=== PATIENT | male | born 1965 | race Caucasian/White ===

== ENCOUNTER 2017-11-03 12:38 | Inpatient (IN) | payer BC ==
[2017-11-03 12:45] VITALS: BMI 24.7
--- NOTE | 2017-11-03 13:16 | HP ---
CIWA Score - CIWA Score Nausea/Vomitin Muscle Tremors: 3 Anxiety: 3 Agitation: 3 Paroxysmal Sweats: 2 Orientation: 0-Oriented Tacttile Disturbances: 2-Mild Itch/Numbness/Burn Auditory Disturbances: 2-Mild Harshness/Frighten Visual Disturbances: 0-None Headache: 2-Mild CIWA-Ar Total Score: 20 Admission ROS BHS - HPI Chief Complaint: i need help to stop drinking alcohol Allergies/Adverse Reactions: Allergies Allergy/AdvReac Type Severity Reaction Status Date / Time Penicillins Allergy Verified 11/03/17 13:42 History of Present Illness: this 52 years old male with alcohol dependence,seeking detox,withdrawal symptom, never been n detox before last syncope on 11/01/17 denied medical problem nicotine dependence - Ebola screening Have you traveled outside of the country in the last 21 days: No (N) Have you had contact with anyone from an Ebola affected area: No Have you been sick,other than usual withdrawal symptoms: No Do you have a fever: No - Review of Systems Constitutional: Loss of Appetite, Malaise, Night Sweats, Changes in sleep, Weakness EENT: reports: Nose Congestion Respiratory: reports: No Symptoms reported Cardiac: reports: No Symptoms Reported GI: reports: Nausea, Vomiting, Abdominal cramping : reports: No Symptoms Reported Musculoskeletal: reports: Back Pain, Muscle Pain Integumentary: reports: Dryness Neuro: reports: Headache, Tremors Endocrine: reports: No Symptoms Reported Hematology: reports: No Symptoms Reported Psychiatric: reports: No Sypmtoms Reported, Judgement Intact, Mood/Affect Appropiate, Orientated x3 Patient History - Patient Medical History Hx Anemia: No Hx Asthma: No Hx Chronic Obstructive Pulmonary Disease (COPD): No Hx Cancer: No Hx Cardiac Disorders: No Hx Congestive Heart Failure: No Hx Hypertension: No Hx Hypercholesterolemia: No Hx Pacemaker: No HX Cerebrovascular Accident: No Hx Seizures: No Hx Dementia: No Hx Diabetes: No Hx Gastrointestinal Disorders: No Hx Liver Disease: No Hx Genitourinary Disorders: No Hx Sexually Transmitted Disorders: No Hx Renal Disease (ESRD): No Hx Thyroid Disease: No Hx Human Immunodeficiency Virus (HIV): No (never been tested) Hx Hepatitis C: No Hx Depression: No Hx Suicide Attempt: No Hx Bipolar Disorder: No Hx Schizophrenia: No Other Medical History: no suicidal,no homicidal - Patient Surgical History Past Surgical History: Yes Hx Neurologic Surgery: No Hx Cataract Extraction: No Hx Cardiac Surgery: No Hx Lung Surgery: No Hx Breast Surgery: No Hx Breast Biopsy: No Hx Abdominal Surgery: No Hx Appendectomy: Yes (AT AGE 8) Hx Cholecystectomy: No Hx Genitourinary Surgery: No Hx Section: No Hx Orthopedic Surgery: No Anesthesia Reaction: No - PPD History Previous Implant?: No Documented Results: Negative w/o proof Implanted On Prior R Admission?: No PPD to be Administered?: Yes - Smoking Cessation Smoking history: Current every day smoker Have you smoked in the past 12 months: Yes Aproximately how many cigarettes per day: 20 Hx Chewing Tobacco Use: No Initiated information on smoking cessation: Yes 'Breaking Loose' booklet given: 11/03/17 - Substance & Tx. History Hx Alcohol Use: Yes Hx Substance Use: No Substance Use Type: Alcohol Hx Substance Use Treatment: No - Substances Abused Alcohol Route: Oral Frequency: Daily Amount used: 2 PINTS OF VODKA Age of first use: 14 Date of Last Use: 11/03/17 Family Disease History - Family Disease History Family Disease History: Other: Father, Mother Admission Physical Exam BHS - Vital Signs Vital Signs: Vital Signs - 24 hr 11/03/17 12:41 Temperature 98 F Pulse Rate 90 Respiratory 19 Rate Blood Pressure 153/105 - Physical General Appearance: Yes: Moderate Distress, Irritable, Sweating, Anxious HEENTM: Yes: Normal ENT Inspection, ELIO, Pharynx Normal Respiratory: Yes: Lungs Clear, Normal Breath Sounds, No Respiratory Distress Neck: Yes: Within Normal Limits, Supple, Trachea in good position Breast: Yes: Within Normal Limits Cardiology: Yes: Within Normal Limits, Regular Rhythm, Regular Rate, S1, S2 Abdominal: Yes: Normal Bowel Sounds, Non Tender, Flat, Soft Genitourinary: Yes: Within Normal Limits Back: Yes: Muscle Spasm Musculoskeletal: Yes: full range of Motion, Back pain, Muscle Pain Extremities: Yes: Tremors Neurological: Yes: investigative agent II-XII NML intact, Fully Oriented, Alert, Motor Strength 5/5 Integumentary: Yes: Dry Lymphatic: Yes: Within Normal Limits - Diagnostic (1) Alcohol dependence with uncomplicated withdrawal Current Visit: Yes Status: Acute (2) Syncope Current Visit: Yes Status: Acute (3) Nicotine dependence Current Visit: Yes Status: Acute Cleared for Admission BHS - Detox or Rehab BHS Level of Care: Medically Managed Detox Regimen/Protocol: Librium [facility] Breath Alcohol Content Breath Alcohol Content: 0.025 Urine Drug Screen - Results Drug Screen Negative: Yes
[2017-11-03] MEDS ORDERED: MAG HYDROX/AL HYDROX/SIMETH 30 ML UNIT-DOSE CUP PO PRN (13:27)
[2017-11-03] MEDS ORDERED: P-EPHED 60MG/TRIPROLIDI 2.5MG TABLET PO PRN (13:27)
[2017-11-03] MEDS ORDERED: chlordiazePOXIDE HCL 25 MG CAPSULE PO PRN (13:27)
[2017-11-03] MEDS ORDERED: LOPERAMIDE HCL 2 MG CAPSULE PO PRN (13:27)
[2017-11-03] MEDS ORDERED: MENTHOL/PHENOL 1 EACH UD MM PRN (13:27)
[2017-11-03] MEDS ORDERED: chlordiazePOXIDE HCL 25 MG CAPSULE PO ONE (13:27)
[2017-11-03] MEDS ORDERED: MAGNESIUM HYDROX 2400MG/30ML ORAL SUSPENSION 30 ML CUP PO PRN (13:27)
[2017-11-03] MEDS ORDERED: hydrOXYzine PAMOATE 50 MG CAPSULE (FP) PO PRN (13:27)
[2017-11-03] MEDS ORDERED: NICOTINE POLACRILEX 2 MG GUM BC PRN (13:27)
[2017-11-03] MEDS ORDERED: guaiFENesin/D-METHORPHAN HB 10 ML UNIT-DOSE CUPS PO PRN (13:27)
[2017-11-03] MEDS ORDERED: MAGNESIUM CITRATE 300 ML BOTTLE PO PRN (13:27)
[2017-11-03] MEDS: NICOTINE 21 MG/24 HOURS TOPICAL PATCH TD SCH (14:29)
[2017-11-03] MEDS: ACETAMINOPHEN 325 MG TABLET (FP) PO PRN (17:11)
[2017-11-03] MEDS: chlordiazePOXIDE HCL 25 MG CAPSULE PO SCH ×2 (17:12→22:12)
[2017-11-03 17:48] LABS: URINE APPEARANCE TURBID; URINE BILIRUBIN NEGATIVE (<2.0 mg/dL); URINE COLOR YELLOW; URINE GLUCOSE (UA) NEGATIVE (NEGATIVE); URINE KETONE TRACE (NEGATIVE); URINE LEUK ESTERASE NEGATIVE (NEGATIVE); URINE NITRITE NEGATIVE (NEGATIVE); URINE PROTEIN NEGATIVE (NEGATIVE); URINE UROBILINOGEN 4.0 E.U/dl mg/dL (0.2-1.0)
[2017-11-03] MEDS: IBUPROFEN 400 MG TABLET (FP) PO PRN (20:27)
[2017-11-03] MEDS: MELATONIN 5 MG TABLETS PO PRN (22:12)
[2017-11-03] MEDS: THIAMINE HCL 100 MG TABLET (FP) PO SCH (22:12)
[2017-11-04] MEDS: chlordiazePOXIDE HCL 25 MG CAPSULE PO SCH ×4 (05:32→22:41)
--- NOTE | 2017-11-04 08:51 | EKG ---
Test Reason : Blood Pressure : / mmHG Vent. Rate : 083 BPM Atrial Rate : 083 BPM P-R Int : 138 ms QRS Dur : 090 ms QT Int : 398 ms P-R-T Axes : -29 058 022 degrees QTc Int : 467 ms NORMAL SINUS RHYTHM NONSPECIFIC ST ABNORMALITY ABNORMAL ECG NO PREVIOUS ECGS AVAILABLE Confirmed by BALDEMAR SAINZ MD ([id number]) on 11/04/2017 8:51:20 AM Referred By: Confirmed By:BALDEMAR SAINZ MD
[2017-11-04] MEDS: PRENATAL VITAMINS W/ FOLIC ACID TABLET (FP) PO SCH (10:24)
[2017-11-04] MEDS: ACETAMINOPHEN 325 MG TABLET (FP) PO PRN ×2 (10:25→15:11)
[2017-11-04] MEDS: NICOTINE 21 MG/24 HOURS TOPICAL PATCH TD SCH (10:25)
--- NOTE | 2017-11-04 11:18 | PN ---
S CIWA - CIWA Score Nausea/Vomitin Muscle Tremors: 3 Anxiety: 3 Agitation: 3 Paroxysmal Sweats: 3 Orientation: 0-Oriented Tacttile Disturbances: 0-None Auditory Disturbances: 0-None Visual Disturbances: 0-None Headache: 0-None Present CIWA-Ar Total Score: 14 BHS Progress Note (SOAP) Subjective: Shakes sweats Sleep disturbance toothache Objective: 11/04/17 11:15 A & O x 3 Anxious No acute distress Vital Signs Temperature 98.4 F 11/04/17 09:35 Pulse Rate 85 11/04/17 09:35 Respiratory Rate 18 11/04/17 09:35 Blood Pressure 126/87 11/04/17 09:35 O2 Sat by Pulse Oximetry (%) Afebrile Laboratory Last Values Urine Color Yellow 11/03/17 Unknown Urine Appearance Turbid 11/03/17 Unknown Urine pH 5.0 (5.0-8.0) 11/03/17 Unknown Ur Specific [place] 1.018 (1.001-1.035) 11/03/17 Unknown Urine Protein Negative (NEGATIVE) 11/03/17 Unknown Urine Glucose (UA) Negative (NEGATIVE) 11/03/17 Unknown Urine Ketones Trace (NEGATIVE) H 11/03/17 Unknown Urine Blood Negative (NEGATIVE) 11/03/17 Unknown Urine Nitrite Negative (NEGATIVE) 11/03/17 Unknown Urine Bilirubin Negative (<2.0 mg/dL) 11/03/17 Unknown Urine Urobilinogen 4.0 e.u/dl mg/dL (0.2-1.0) 11/03/17 Unknown Ur Leukocyte Esterase Negative (NEGATIVE) 11/03/17 Unknown Hematology pending, abnormal urine result Assessment: 11/04/17 11:17 Withdrawal sx Abnormal urinalysis Plan: Continue detox Increase hydration Repeat UA in a.m
[2017-11-04 11:19] LABS: HEMATOCRIT 38.5 % (35.4-49); HEMOGLOBIN 13.3 GM/dL (11.7-16.9); MCH 37.9 pg (25.7-33.7); MCHC 34.6 g/dl (32.0-35.9); MEAN CELL VOLUME 109.6 fl (80-96); MEAN PLT VOLUME 8.7 fl (7.5-11.1); PLATELET COUNT 112 K/MM3 (134-434); RBC 3.51 M/mm3 (4.00-5.60); RDW 12.1 % (11.9-15.9); WHITE BLOOD COUNT 7.2 K/mm3 (4.0-10.0)
[2017-11-04 11:50] LABS: ALBUMIN 2.9 g/dl (3.4-5.0); ALK PHOS 91 U/L (45-117); ANION GAP 8 (8-16); BILIRUBIN,TOTAL 1.5 mg/dL (0.2-1.0); BLOOD UREA NITROGEN 10 mg/dL (7-18); CALCIUM 8.6 mg/dL (8.5-10.1); CHLORIDE 102 mmol/L (98-107); CO2 28 mmol/L (21-32); CREATININE 0.7 mg/dL (0.7-1.3); GLUCOSE,RANDOM 103 mg/dL (74-106); POTASSIUM 3.8 mmol/L (3.5-5.1); SGOT/AST 47 U/L (15-37); SGPT/ALT 42 U/L (12-78); SODIUM 138 mmol/L (136-145); TOT PROT 6.9 g/dl (6.4-8.2)
[2017-11-04] MEDS: IBUPROFEN 400 MG TABLET (FP) PO PRN (17:52)
[2017-11-04] MEDS: MELATONIN 5 MG TABLETS PO PRN (22:41)
[2017-11-04] MEDS: THIAMINE HCL 100 MG TABLET (FP) PO SCH (22:41)
[2017-11-05] MEDS: ACETAMINOPHEN 325 MG TABLET (FP) PO PRN ×2 (01:46→22:06)
[2017-11-05] MEDS: chlordiazePOXIDE HCL 25 MG CAPSULE PO SCH ×2 (05:17→10:21)
[2017-11-05] MEDS: IBUPROFEN 400 MG TABLET (FP) PO PRN (09:15)
[2017-11-05] MEDS: PRENATAL VITAMINS W/ FOLIC ACID TABLET (FP) PO SCH (10:21)
[2017-11-05] MEDS: NICOTINE 21 MG/24 HOURS TOPICAL PATCH TD SCH (10:21)
[2017-11-05] MEDS ORDERED: LIDOCAINE VISCOUS 2% ORAL/TOP 20 ML UNIT-DOSE CUP MM PRN (13:02)
[2017-11-05] MEDS ORDERED: NAPROXEN 250 MG TABLET (FP) PO ONE (13:03)
--- NOTE | 2017-11-05 13:11 | PN ---
[facility] CIWA - CIWA Score Nausea/Vomitin-No Nausea/No Vomiting Muscle Tremors: None Anxiety: 4-Mod. Anxious/Guarded Agitation: 4-Moderately Restless Paroxysmal Sweats: No Perspiration Orientation: 0-Oriented Tacttile Disturbances: 3-Moderate Itch/Numb/Burn Auditory Disturbances: 1-Very Mild Visual Disturbances: 2-Mild Sensitivity Headache: 0-None Present CIWA-Ar Total Score: 14 S Progress Note (SOAP) Subjective: Fatigue, Anxious, Constipation. Patient reports discomfort on left side of lower mouth since yesterday. Patient denies any recent history of dental disorder/infection. Objective: PATIENT A & O X 3, OBSERVED AMBULATING ON UNIT. NO ACUTE DISTRESS. MILD SWELLING NOTED ON FACE AT RIGHT LOWER JAW. 11/05/17 13:07 Vital Signs Temperature 98.3 F 11/05/17 09:09 Pulse Rate 90 11/05/17 09:09 Respiratory Rate 16 11/05/17 09:09 Blood Pressure 121/80 11/05/17 09:09 O2 Sat by Pulse Oximetry (%) Laboratory Tests 11/03/17 11/04/17 11/04/17 Unknown 07:00 07:00 WBC 7.2 RBC 3.51 L Hgb 13.3 Hct 38.5 MCV 109.6 H MCH 37.9 H MCHC 34.6 RDW 12.1 Plt Count 112 L MPV 8.7 Sodium 138 Potassium 3.8 Chloride 102 Carbon Dioxide 28 Anion Gap 8 BUN 10 Creatinine 0.7 Creat Clearance w eGFR > 60 Random Glucose 103 Calcium 8.6 Total Bilirubin 1.5 H AST 47 H ALT 42 Alkaline Phosphatase 91 Total Protein 6.9 Albumin 2.9 L Urine Color Yellow Urine Appearance Turbid Urine pH 5.0 Ur Specific [place] 1.018 Urine Protein Negative Urine Glucose (UA) Negative Urine Ketones Trace H Urine Blood Negative Urine Nitrite Negative Urine Bilirubin Negative Urine Urobilinogen 4.0 e.u/dl Ur Leukocyte Esterase Negative RPR Titer 11/04/17 07:00 WBC RBC Hgb Hct MCV MCH MCHC RDW Plt Count MPV Sodium Potassium Chloride Carbon Dioxide Anion Gap BUN Creatinine Creat Clearance w eGFR Random Glucose Calcium Total Bilirubin AST ALT Alkaline Phosphatase Total Protein Albumin Urine Color Urine Appearance Urine pH Ur Specific [place] Urine Protein Urine Glucose (UA) Urine Ketones Urine Blood Urine Nitrite Urine Bilirubin Urine Urobilinogen Ur Leukocyte Esterase RPR Titer Nonreactive LABS NOTED. 11/05/17 13:14 Assessment: 11/05/17 13:07 WITHDRAWAL SYMPTOMS. DENTAL INFECTION (POSSIBLE). Plan: CONTINUE DETOX. CLINDAMYCIN, 300 MG PO TID FOR POSSIBLE DENTAL INFECTION. LIDOCAINE SWISH 'N' SWALLOW, NAPROXEN FOR ORAL PAIN.
[2017-11-05] MEDS: CLINDAMYCIN HCL 150 MG CAPSULE (FP) PO SCH ×2 (15:00→22:06)
[2017-11-05] MEDS: chlordiazePOXIDE 5 MG CAPSULE PO SCH ×2 (17:34→22:07)
[2017-11-05] MEDS: THIAMINE HCL 100 MG TABLET (FP) PO SCH (22:07)
[2017-11-05] MEDS: NAPROXEN 250 MG TABLET (FP) PO SCH (22:07)
[2017-11-05] MEDS: MELATONIN 5 MG TABLETS PO PRN (22:20)
[2017-11-06] MEDS: chlordiazePOXIDE 5 MG CAPSULE PO SCH ×2 (06:25→10:22)
[2017-11-06] MEDS: CLINDAMYCIN HCL 150 MG CAPSULE (FP) PO SCH ×3 (06:26→22:07)
[2017-11-06] MEDS: NAPROXEN 250 MG TABLET (FP) PO SCH ×2 (10:22→22:06)
[2017-11-06] MEDS: PRENATAL VITAMINS W/ FOLIC ACID TABLET (FP) PO SCH (10:22)
[2017-11-06] MEDS: NICOTINE 21 MG/24 HOURS TOPICAL PATCH TD SCH (10:23)
--- NOTE | 2017-11-06 11:59 | PN ---
BHS Progress Note (SOAP) Subjective: Fatigue, Anxious. Objective: PATIENT A & O X 3. NO ACUTE DISTRESS. 11/06/17 11:58 Vital Signs Temperature 97.2 F L 11/06/17 09:29 Pulse Rate 66 11/06/17 09:29 Respiratory Rate 18 11/06/17 09:29 Blood Pressure 126/74 11/06/17 09:29 O2 Sat by Pulse Oximetry (%) Laboratory Tests 11/03/17 11/04/17 11/04/17 Unknown 07:00 07:00 WBC 7.2 RBC 3.51 L Hgb 13.3 Hct 38.5 MCV 109.6 H MCH 37.9 H MCHC 34.6 RDW 12.1 Plt Count 112 L MPV 8.7 Sodium 138 Potassium 3.8 Chloride 102 Carbon Dioxide 28 Anion Gap 8 BUN 10 Creatinine 0.7 Creat Clearance w eGFR > 60 Random Glucose 103 Calcium 8.6 Total Bilirubin 1.5 H AST 47 H ALT 42 Alkaline Phosphatase 91 Total Protein 6.9 Albumin 2.9 L Urine Color Yellow Urine Appearance Turbid Urine pH 5.0 Ur Specific [place] 1.018 Urine Protein Negative Urine Glucose (UA) Negative Urine Ketones Trace H Urine Blood Negative Urine Nitrite Negative Urine Bilirubin Negative Urine Urobilinogen 4.0 e.u/dl Ur Leukocyte Esterase Negative RPR Titer 11/04/17 07:00 WBC RBC Hgb Hct MCV MCH MCHC RDW Plt Count MPV Sodium Potassium Chloride Carbon Dioxide Anion Gap BUN Creatinine Creat Clearance w eGFR Random Glucose Calcium Total Bilirubin AST ALT Alkaline Phosphatase Total Protein Albumin Urine Color Urine Appearance Urine pH Ur Specific [place] Urine Protein Urine Glucose (UA) Urine Ketones Urine Blood Urine Nitrite Urine Bilirubin Urine Urobilinogen Ur Leukocyte Esterase RPR Titer Nonreactive LABS NOTED. Assessment: 11/06/17 11:58 WITHDRAWAL SYMPTOMS. Plan: CONTINUE DETOX. ENCOURAGE AMBULATION. PATIENT SCHEDULED FOR D/C TOMORROW.
[2017-11-06 14:30] LABS: URINE APPEARANCE CLEAR; URINE BILIRUBIN NEGATIVE (<2.0 mg/dL); URINE GLUCOSE (UA) NEGATIVE (NEGATIVE); URINE KETONE NEGATIVE (NEGATIVE); URINE LEUK ESTERASE NEGATIVE (NEGATIVE); URINE NITRITE NEGATIVE (NEGATIVE); URINE PROTEIN NEGATIVE (NEGATIVE); URINE UROBILINOGEN 4.0 E.U/dl mg/dL (0.2-1.0)
[2017-11-06 14:31] LABS: URINE COLOR YELLOW
[2017-11-06] MEDS: chlordiazePOXIDE HCL 10 MG CAPSULE PO SCH ×2 (17:22→22:06)
[2017-11-06] MEDS: THIAMINE HCL 100 MG TABLET (FP) PO SCH (22:06)
[2017-11-06] MEDS: MELATONIN 5 MG TABLETS PO PRN (22:08)
[2017-11-07 09:42] VITALS: BP 120/70; PULSE 70; TEMP 97.7
[2017-11-07] MEDS: CLINDAMYCIN HCL 150 MG CAPSULE (FP) PO SCH (09:56)
[2017-11-07] MEDS: chlordiazePOXIDE HCL 10 MG CAPSULE PO SCH (09:57)
--- NOTE | 2017-11-07 16:23 | PN ---
BHS Progress Note (SOAP) Subjective: Patient denies current Detox symptoms and reports that he feels well overall. Objective: PATIENT A & O X 3, OBSERVED AMBULATING ON UNIT. NO ACUTE DISTRESS. 11/07/17 16:22 Vital Signs Temperature 97.7 F 11/07/17 09:41 Pulse Rate 70 11/07/17 09:41 Respiratory Rate 18 11/07/17 09:41 Blood Pressure 120/70 11/07/17 09:41 O2 Sat by Pulse Oximetry (%) Laboratory Tests 11/03/17 11/04/17 11/04/17 Unknown 07:00 07:00 WBC 7.2 RBC 3.51 L Hgb 13.3 Hct 38.5 MCV 109.6 H MCH 37.9 H MCHC 34.6 RDW 12.1 Plt Count 112 L MPV 8.7 Sodium 138 Potassium 3.8 Chloride 102 Carbon Dioxide 28 Anion Gap 8 BUN 10 Creatinine 0.7 Creat Clearance w eGFR > 60 Random Glucose 103 Calcium 8.6 Total Bilirubin 1.5 H AST 47 H ALT 42 Alkaline Phosphatase 91 Total Protein 6.9 Albumin 2.9 L Urine Color Yellow Urine Appearance Turbid Urine pH 5.0 Ur Specific [place] 1.018 Urine Protein Negative Urine Glucose (UA) Negative Urine Ketones Trace H Urine Blood Negative Urine Nitrite Negative Urine Bilirubin Negative Urine Urobilinogen 4.0 e.u/dl Ur Leukocyte Esterase Negative RPR Titer 11/04/17 11/06/17 07:00 13:20 WBC RBC Hgb Hct MCV MCH MCHC RDW Plt Count MPV Sodium Potassium Chloride Carbon Dioxide Anion Gap BUN Creatinine Creat Clearance w eGFR Random Glucose Calcium Total Bilirubin AST ALT Alkaline Phosphatase Total Protein Albumin Urine Color Yellow Urine Appearance Clear Urine pH 5.0 Ur Specific [place] 1.019 Urine Protein Negative Urine Glucose (UA) Negative Urine Ketones Negative Urine Blood Negative Urine Nitrite Negative Urine Bilirubin Negative Urine Urobilinogen 4.0 e.u/dl Ur Leukocyte Esterase Negative RPR Titer Nonreactive LABS NOTED. Assessment: 11/07/17 16:22 COMPLETION OF DETOX REGIMEN. Plan: PATIENT SCHEDULED FOR DISCHARGE UNIT TODAY.
--- NOTE | 2017-11-07 16:29 | DS ---
[facility] Detox Discharge Summary Admission Date: 11/03/17 Discharge Date: 11/07/17 - History Present History: Alcohol Dependence Additional Comments: PATIENT ELECTING TO GO HOME. PATIENT ADVISED TO CONSIDER LOCAL 12-STEP / AA OUTPATIENT SUPPORT GROUP PROGRAMS FOR AFTER CARE. PRESCRIPTION FOR REMAINDER OF COURSE OF ANTIBIOTIC (CLINDAMYCIN) STARTED FOR TREATMENT OF POSSIBLE DENTAL INFECTION WHILE ADMITTED FOR DETOX SENT TO PATIENT 'S PHARMACY ([facility]) FOR FOLLOW-UP. PATIENT WAS DISCHARGED FROM DETOX UNIT IN STABLE MEDICAL CONDITION. Pertinent Past History: History of Syncope, Nicotine Dependence. - Physical Exam Results Vital Signs: Vital Signs Temperature 97.7 F 11/07/17 09:41 Pulse Rate 70 11/07/17 09:41 Respiratory Rate 18 11/07/17 09:41 Blood Pressure 120/70 11/07/17 09:41 O2 Sat by Pulse Oximetry (%) Pertinent Admission Physical Exam Findings: WITHDRAWAL SYMPTOMS. Laboratory Tests 11/03/17 11/04/17 11/04/17 Unknown 07:00 07:00 WBC 7.2 RBC 3.51 L Hgb 13.3 Hct 38.5 MCV 109.6 H MCH 37.9 H MCHC 34.6 RDW 12.1 Plt Count 112 L MPV 8.7 Sodium 138 Potassium 3.8 Chloride 102 Carbon Dioxide 28 Anion Gap 8 BUN 10 Creatinine 0.7 Creat Clearance w eGFR > 60 Random Glucose 103 Calcium 8.6 Total Bilirubin 1.5 H AST 47 H ALT 42 Alkaline Phosphatase 91 Total Protein 6.9 Albumin 2.9 L Urine Color Yellow Urine Appearance Turbid Urine pH 5.0 Ur Specific [place] 1.018 Urine Protein Negative Urine Glucose (UA) Negative Urine Ketones Trace H Urine Blood Negative Urine Nitrite Negative Urine Bilirubin Negative Urine Urobilinogen 4.0 e.u/dl Ur Leukocyte Esterase Negative RPR Titer 11/04/17 11/06/17 07:00 13:20 WBC RBC Hgb Hct MCV MCH MCHC RDW Plt Count MPV Sodium Potassium Chloride Carbon Dioxide Anion Gap BUN Creatinine Creat Clearance w eGFR Random Glucose Calcium Total Bilirubin AST ALT Alkaline Phosphatase Total Protein Albumin Urine Color Yellow Urine Appearance Clear Urine pH 5.0 Ur Specific [place] 1.019 Urine Protein Negative Urine Glucose (UA) Negative Urine Ketones Negative Urine Blood Negative Urine Nitrite Negative Urine Bilirubin Negative Urine Urobilinogen 4.0 e.u/dl Ur Leukocyte Esterase Negative RPR Titer Nonreactive LABS NOTED. - Treatment Hospital Course: Detox Protocol Followed, Detoxed Safely, Responded well, Discharged Condition Good Patient has Accepted a Rehab Referral to: PT ADVISED TO CONSIDER LOCAL 12-STEP/ NA OUTPATIENT SUPPORT GROUPS. - Medication Discharge Medications: Ambulatory Orders Clindamycin [Cleocin -] 300 mg PO TID 5 Days #15 capsule 11/06/17 - Diagnosis (1) Dental infection Status: Acute (2) Alcohol dependence with uncomplicated withdrawal Status: Acute (3) Syncope Status: Acute Qualifiers: Syncope type: unspecified Qualified Code(s): R55 - Syncope and collapse (4) Nicotine dependence Status: Chronic Qualifiers: Nicotine product type: cigarettes Substance use status: uncomplicated Qualified Code(s): F17.210 - Nicotine dependence, cigarettes, uncomplicated - AMA Did Patient Leave Against Medical Advice: No
== END 2017-11-07 09:40 | disposition home or self-care (01) | DRG 897 ==
LOC: YASAS 12:38 → Y3N 13:43
PROVIDERS: ADMIT Surgery; ATTEND Surgery
PROC: HZ2ZZZZ Detoxification Services for Substance Abuse Treatment (ICD-10-PCS; principal; 2017-11-03)
DX: F10.230 Alcohol dependence with withdrawal, uncomplicated (principal); F17.210 Nicotine dependence, cigarettes, uncomplicated; R82.90 Unspecified abnormal findings in urine; K04.7 Periapical abscess without sinus; Z86.79 Personal history of other diseases of the circulatory system; Z87.898 Personal history of other specified conditions; Z88.0 Allergy status to penicillin
CPT/HCPCS: 36415; 80053; 81003; 85027; 86593; 93005; 93010